=== PATIENT | female | born 1975 | race Caucasian/White ===

== ENCOUNTER 2016-06-06 07:30 | Emergency (ER) | payer BC ==
[2016-06-06] MEDS ORDERED: Albuterol 2.5 MG/3 ML NEB.SOL* (0.083%) INH ONE (07:52)
[2016-06-06] MEDS ORDERED: Acetaminophen TAB* 325 MG PO ONE (07:52)
[2016-06-06 07:53] VITALS: BP 110/53
--- NOTE | 2016-06-06 08:17 | UC ---
Respiratory Complaint HPI - HPI Summary HPI Summary: 2 day history of cough and fever with associated shortness of breath and chest discomfort. Coughing almost to the point of emesis. History of asthma, uses advair regularly with good relief. Did not have a flu shot; unaware of any particular infectious contacts. - History of Current Complaint Chief Complaint: UCGeneralIllness Stated Complaint: COUGH,CONGESTION Time Seen by Provider: 06/06/16 07:51 Hx Obtained From: Patient Hx Last Menstrual Period: 06/01/16 ?: No Onset/Duration: Sudden Onset, Lasting Days - 2 Timing: Intermittent Episodes - of coughing Severity Initially: Moderate Severity Currently: Moderate Character: Cough: Nonproductive Aggravating Factors: Exertion, Recumbent Position Alleviating Factors: Bronchodilator Associated Signs And Symptoms: Positive: Dyspnea, Fever, Chills, Hoarseness - Risk Factors Pulmonary Embolism Risk Factors: Negative Cardiac Risk Factors: Negative Pseudomonas Risk Factors: Negative Tuberculosis Risk Factors: Negative - Allergies/Home Medications Allergies/Adverse Reactions: Allergies Allergy/AdvReac Type Severity Reaction Status Date / Time No Known Allergies Allergy Verified 06/06/16 07:41 Home Medications: Home Medications Albuterol HFA INHALER* [Ventolin HFA Inhaler*] 1 - 2 puff INH Q4H PRN 06/06/16 [ History Confirmed 06/06/16] Fluticasone-Salmeterol 100-50* [Advair Diskus 100-50*] 1 puff INH BID 06/06/16 [ History Confirmed 06/06/16] Phenylephrine W/ Dm-GG [Mucinex Congestion & Coug] 1 liq PO Q4H PRN 06/06/16 [ History Confirmed 06/06/16] Phenylephrine-Chlorpheniramine [[place] Plus Cold &] 2 tab PO Q4H PRN 06/06 [History Confirmed 06/06/16] Pseudoephedrine TAB* [Sudafed TAB*] 30 mg PO Q6H PRN 06/06/16 [History Confirmed 06/06/16] PMH/Surg Hx/FS Hx/Imm Hx Endocrine History Of: Denies: Diabetes, Thyroid Disease Cardiovascular History Of: Denies: Cardiac Disorders, Hypertension Respiratory History Of: Reports: Asthma Denies: COPD GI/ History Of: Denies: Ulcer - Surgical History Surgical History: None - Family History Known Family History: Positive: Hypertension - mother Negative: Diabetes, Respiratory Disease - Social History Occupation: Employed Full-time Lives: With Family Alcohol Use: Occasionally Substance Use Type: None Smoking Status (MU): Former Smoker When Did the Patient Quit Smoking/Using Tobacco: ~2009 - Immunization History Most Recent Influenza Vaccination: Not the Season Review of Systems Constitutional: Fever, Chills, Fatigue Skin: Negative Eyes: Negative ENT: Sore Throat Respiratory: Shortness Of Breath, Cough Cardiovascular: Chest Pain Gastrointestinal: Negative Genitourinary: Negative Motor: Negative Neurovascular: Negative Musculoskeletal: Negative Neurological: Headache Psychological: Negative All Other Systems Reviewed And Are Negative: Yes Physical Exam Triage Information Reviewed: Yes Appearance: Ill-Appearing Vital Signs: Initial Vital Signs Temp 101.1 F 06/06/16 07:37 Pulse 116 06/06/16 07:37 Resp 18 06/06/16 07:37 BP 110/53 06/06/16 07:37 Pulse Ox 93 06/06/16 07:37 Vital Signs Reviewed: Yes Eyes: Positive: Conjunctiva Inflamed - mild bilateral injection ENT: Positive: Pharyngeal erythema, TMs normal Neck: Positive: Supple, Nontender, No Lymphadenopathy Respiratory: Positive: Decreased breath sounds - to both bases, Crackles - prolonged expiration and wheeze in lower lung moody, coarse breath sounds, Rhonchi Cardiovascular: Positive: No Murmur, Tachycardia Abdomen Description: Positive: Nontender, No Organomegaly, Soft Musculoskeletal Exam: Normal Neurological: Positive: Alert, Muscle Tone Normal Psychological Exam: Normal Skin Exam: Normal UC Diagnostic Evaluation - Laboratory O2 Sat by Pulse Oximetry: 93 Diagnostic Studies Comment: + Flu A - Radiology Xray Interpretation: No Acute Changes Radiology Interpretation Completed By: ED Physician - Per MH read Respiratory Course/Dx - Course Course Of Treatment: tamiflu given due to asthma, low sats. continue albuterol and Advair. rest and fluids. - Differential Dx/Diagnosis Differential Diagnosis/HQI/PQRI: Asthma, Bronchitis, Influenza, Lower Resp Infection Provider Diagnoses: Influenza A. asthma Discharge - Discharge Plan Condition: Stable Disposition: HOME Prescriptions: Oseltamivir CAP* [Tamiflu CAP*] 75 mg PO BID #10 cap Patient Education Materials: Influenza (ED) Additional Instructions: Take Tamflu as prescribed to help to support you through influenza. If the radiologist reads the chest xray differently, I will call you. Continue use of Advair and albuterol to decrease wheezing. Ensure high intake of fluids, aiming for at least 2 liters today Ibuprofen 600mg three times daily with food might be more helpful with the ache and headache. Follow up if you develop worsening shortness of breath. You could have persistent fever for up to 5 more days.
--- NOTE | 2016-06-06 09:12 | RAD ---
HISTORY: Cough and fever COMPARISONS: None VIEWS: 2: Frontal dual-energy and lateral views of the chest. FINDINGS: CARDIOMEDIASTINAL SILHOUETTE: The cardiomediastinal silhouette is normal. RUI: The rui are normal. PLEURA: The costophrenic angles are sharp. No pleural abnormalities are noted. LUNG PARENCHYMA: The lungs are clear. ABDOMEN: The upper abdomen is clear. There is no subphrenic gas. BONES AND SOFT TISSUES: No bone or soft tissue abnormalities are noted. OTHER: None. IMPRESSION: NO ACTIVE CARDIOPULMONARY DISEASE.
== END 2016-06-06 09:03 | disposition home or self-care (01) ==
LOC: UCCORT 07:30
DX: J09.X2 Influenza due to identified novel influenza A virus with other respiratory manifestations (principal); J45.909 Unspecified asthma, uncomplicated; H11.89 Other specified disorders of conjunctiva; R00.0 Tachycardia, unspecified; Z87.891 Personal history of nicotine dependence
CPT/HCPCS: 71020; 87502; 99212; A9270-GY; G0463

== ENCOUNTER 2017-05-13 12:04 | Emergency (ER) | payer BC ==
--- NOTE | 2017-05-13 14:02 | UC ---
FLU HPI - HPI Summary HPI Summary: 41 y/o female presents to the urgent care c/o nasal congestion, sinus pain, body aches, sore in her mouth, +PND and dry cough for the past 5-6 days. Pt has been took Zyrtec and albuterol inhaler to alleviate cough yesterday. PEPPER is . Pt denies fever, SOB, wheezing, chest pain, abdominal pain, N/V/D. She didn' t' take the influenza vaccine last year. - History of Current Complaint Chief Complaint: UCRespiratory Stated Complaint: FLU SYMPTOMS Time Seen by Provider: 05/13/17 14:00 Hx Obtained From: Patient Hx Last Menstrual Period: 05/06/2017 ?: No Onset/Duration: Gradual Onset, Lasting Days - 6 days, Still Present Severity Currently: Moderate Severity Initially: Mild Pain Intensity: 4 Pain Scale Used: 0-10 Numeric Associated Signs & Symptoms: Positive: Myalgia, Cough, Nasal Congestion, Headache - Risk Factors Influenza Risk Factors: Negative - Allergy/Home Medications Allergies/Adverse Reactions: Allergies Allergy/AdvReac Type Severity Reaction Status Date / Time No Known Allergies Allergy Verified 05/13/17 12:33 Home Medications: Home Medications Ibuprofen [Advil] 200 mg PO Q6HR PRN 05/13/17 [History Confirmed 05/13/17] PMH/Surg Hx/FS Hx/Imm Hx Previously Healthy: Yes Respiratory History: Asthma - Surgical History Surgical History: None - Family History Known Family History: Positive: Cardiac Disease, Hypertension - mother Negative: Diabetes, Respiratory Disease - Social History Occupation: Employed Full-time Lives: With Family Alcohol Use: Occasionally Substance Use Type: None Smoking Status (MU): Former Smoker When Did the Patient Quit Smoking/Using Tobacco: ~2009 - Immunization History Most Recent Influenza Vaccination: Not the 2015/2016 Season Review of Systems Constitutional: Chills, Other - body aches Skin: Negative Eyes: Negative ENT: Nasal Discharge, Sinus Congestion, Sinus Pain/Tenderness Respiratory: Cough - dry Cardiovascular: Negative Gastrointestinal: Negative Genitourinary: Negative Motor: Negative Neurovascular: Negative Musculoskeletal: Negative Neurological: Headache Psychological: Negative Is Patient Immunocompromised?: No All Other Systems Reviewed And Are Negative: Yes Physical Exam Triage Information Reviewed: Yes Vital Signs: Initial Vital Signs Temp 98.8 F 05/13/17 12:35 Pulse 77 05/13/17 12:35 Resp 18 05/13/17 12:35 BP 141/75 05/13/17 12:35 Pulse Ox 98 05/13/17 12:35 - Additional Comments VITAL SIGNS: Reviewed. GENERAL: Patient is a well developed and nourished female who is sitting comfortable in the examining table. Patient is not in any acute respiratory distress. HEAD AND FACE: No signs of trauma. No ecchymosis, hematomas or skull depressions. No sinus tenderness. edematous erythematous nasal mucosa with yellowish discharge, EYES: PERRLA, EOMI x 2, No injected conjunctiva, clear watery eyes, no nystagmus. No photophobia. EARS: Hearing grossly intact. Ear canals and tympanic membranes are within normal limits. MOUTH: Positive pharynx with erythema, no exudates,no palatal petechiae. no B/L tonsillar enlargement Uvula in midline. 2 aphtous ulcer in the lower buccal mucosa NECK: Supple, trachea is midline, Positive anterior cervical lymphadenopathy, no JVD, no carotid bruit, no c-spine tenderness, neck with full ROM. No meningeal signs, no Kernig's or brudzinskis signs. CHEST: Symmetric, no tenderness at palpation LUNGS: Clear to auscultation bilaterally. No wheezing or crackles. CVS: Regular rate and rhythm, S1 and S2 present, no murmurs or gallops appreciated. ABDOMEN: Soft, non-tender. No signs of distention. No rebound no guarding, and no masses palpated. Bowel sounds are normal. EXTREMITIES: FROM in all major joints, no edema, no cyanosis or clubbing. NEURO: Alert and oriented x 3. No acute neurological deficits. Speech is normal and follows commands. SKIN: Dry and warm Flu Course/Dx - Course Course Of Treatment: 41 y/o female presents to the urgent care c/o nasal congestion, sinus pain, body aches, sore in her mouth, +PND and dry cough for the past 5-6 days. Pt has been took Zyrtec and albuterol inhaler to alleviate cough yesterday. Pt denies fever, SOB, wheezing, chest pain, abdominal pain, N/V /D. She didnt' take the influenza vaccine last year. Hx obtained. Pt with URI and 2 aphthous ulcers on examination. Influenza A&B ordered: result: negtive. Pt advised to take ibuprofen PO to alleviates symptoms.Rx Triamcinolone paste topical for aphthous ulcer. Advised on hand washing and wear a mask to avoid spreading. Pt advised to rest, increase fluid intake, eat well and avoid strenuous exercise. If symptoms do not improve or worsen advised to return to the urgent care or f/u with her PCP for further evaluation and treatment.Pt's BP is elevated today advised to decrease salt in diet, monitor BP and f/u with PCP for further management. Pt understood and agreed with plan of care. - Differential Dx/Diagnosis Differential Diagnosis/HQI/PQRI: Bronchitis, Influenza, Upper Respiratory Infection, Other - asthma, pharyngitis Provider Diagnoses: 1-Upper respiratory infection. 2- Aphtous ulcer. 2- elevated BP w/o Hx of HTN Discharge - Discharge Plan Condition: Stable Disposition: HOME Prescriptions: Fluticasone NASAL SPRAY 50MCG* [Flonase NASAL SPRAY 50MCG*] 2 spray BOTH NARES DAILY #1 btl Triamcinolone DENTAL PASTE(NF) 1 applic MT TID #1 tube Patient Education Materials: Canker Sores (ED), Upper Respiratory Infection (ED ), Low-Sodium Diet (ED) Forms: *Work Release Referrals: [facility] [Outside] - 3 Days Additional Instructions: 1-Please take ibuprofen PO q6-8hrs prn OTC as instructed after meals to alleviate PEPPER and body aches. Increase fluid intake, eat well, rest and avoid strenuous exercise. 2- apply the topical paste on the aphthous ulcers as directed 3- Use saline drops and Flonase nasal spray to clear your sinuses 4-If symptoms do not improve or worsen please return to the urgent care or f/u with your PCP for further evaluation and treatment. 5-Your BP is elevated today. please decrease salt in your diet, monitor BP and if it continues to be elevated please f/u with your PCP for further management
[2017-05-13 14:44] VITALS: BP 112/70
== END 2017-05-13 14:40 | disposition home or self-care (01) ==
LOC: UCEAST 12:04
DX: J06.9 Acute upper respiratory infection, unspecified (principal); K12.0 Recurrent oral aphthae; R03.0 Elevated blood-pressure reading, without diagnosis of hypertension; J45.909 Unspecified asthma, uncomplicated
CPT/HCPCS: 87502; 99212; G0463